=== PATIENT | female | born 2000 | race Caucasian/White ===

== ENCOUNTER 2024-04-15 01:16 | Emergency (ER) | payer SELFPAY ==
[~2024-04-15] VITALS: Ht 162.6 cm; Wt 77.0 kg
[2024-04-15 03:36] VITALS: BP 114/79
[2024-04-15 03:45] VITALS: BP 117/76
[2024-04-15] MEDS ORDERED: KETOROLAC TROMETHAMINE 30 MG/ML SDV IM ONE (04:20)
[2024-04-15] MEDS ORDERED: PENicillin V POTASSIUM 500 MG/TAB PO ONE (04:20)
[2024-04-15] MEDS ORDERED: PENICILLN VK500 MG PO (04:32)
[2024-04-15] MEDS ORDERED: NAPROXEN500 MG PO (04:32)
[2024-04-15 04:38] VITALS: BP 117/76
== END 2024-04-15 05:12 | disposition home or self-care (01) | DRG 159 ==
LOC: ED 01:16
DX: K02.9 Dental caries, unspecified (principal); K05.6 Periodontal disease, unspecified; S02.5XXA Fracture of tooth (traumatic), initial encounter for closed fracture; X58.XXXA Exposure to other specified factors, initial encounter